=== PATIENT | female | born 1950 | race Caucasian/White ===

== ENCOUNTER 2018-08-26 14:33 | Day surgery (SDC) | payer OTHER ==
[~2018-08-26] VITALS: Ht 152.4 cm; Wt 70.3 kg
[2018-08-26] MEDS ORDERED: MOTRIN (16:03)
[2018-08-26] MEDS ORDERED: AMITRIPTYLINE (16:04)
[2018-08-26 16:05] VITALS: Ht 152.4 cm; Wt 70.3 kg
[2018-08-26 16:25] VITALS: BP 143/64; PULSE 62; RESP 20
--- NOTE | 2018-08-26 16:36 | PREAC ---
Date/Time of Note Date/Time of Note DATE: 08/26/18 TIME: 16:35 Anesthesia Eval and Record Evaluation Time Pre-Procedure Interview DATE: 08/26/18 TIME: 16:35 Age 68 Sex female NPO: 8 hrs Preoperative diagnosis screening Planned procedure colonoscopy Past Medical History Past Medical History: Includes Neuro: Other (insomnia) Musculoskeletal: Osteoarthritis Surgery & Anesthesia Issues No known issue Meds Anticoagulation: No Beta Georgina within 24 hr: No Reason Beta Georgina not given: Pt. not on B-Georgina Reported Medications [Amitriptyline] No Conflict Check 08/26/18 [Motrin] No Conflict Check 08/26/18 Meds reviewed: Yes Allergies Coded Allergies: No Known Allergy (Unverified , 08/26/18) Allergies Reviewed: Yes Labs/Studies Labs Reviewed: Reviewed by anesthesiologist test: N/A Studies: ECG (n/a), CXR (n/a) Pre-procedure Exam Last vitals Vital Signs Date Temp Pulse Resp B/P (MAP) Pulse Ox O2 O2 Flow FiO2 Time Delivery Rate 08/26/18 97.6 62 20 143/64 96 Room Air 16:25 (90) Airway: Adequate mouth opening Mallampati: Mallampati I Teeth: Normal Lung: Normal Heart: Normal ASA Physical Status ASA physical status: 2 Emergency: None Planned Anesthetic General/MAC: MAC Planned Pain Management Parenteral pain med Pre-operative Attestations Prior to commencing anesthesia and surgery, the patient was re-evaluated, there was verification of: *The patient's identity *The results of appropriate recent lab work and preoperative vital signs *The above evaluation not changing prior to induction *Anesthetic plan, risk benefits, alternative and complications discussed with patient/family; questions answered; patient/family understands, accepts and wishes to proceed. VARUN YU MD Aug 26, 2018 16:36
[2018-08-26] MEDS ORDERED: PROPOFOL 20 ML ONE (16:37)
[2018-08-26] MEDS ORDERED: FENTAnyl 50 MCG/ML VIAL ONE (16:37)
--- NOTE | 2018-08-26 17:17 | PAC ---
Date/Time of Note Date/Time of Note DATE: 08/26/18 TIME: 17:17 Post-Anesthesia Notes Post-Anesthesia Note Last documented vital signs Vital Signs Date Temp Pulse Resp B/P (MAP) Pulse Ox O2 O2 Flow FiO2 Time Delivery Rate 08/26/18 97.6 62 20 143/64 96 Room Air 16:25 (90) Activity: WNL Respiratory function: WNL Cardiovascular function: WNL Mental status: Baseline Pain reasonably controlled: Yes Hydration appropriate: Yes Nausea/Vomiting absent: No VARUN YU MD Aug 26, 2018 17:17
[2018-08-26 17:27] VITALS: BP 154/69; PULSE 54; RESP 23
== END 2018-08-26 17:17 | disposition home or self-care (01) ==
LOC: GIL 14:33
PROVIDERS: ATTEND Internal Medicine Gastroenterology
DX: Z12.11 Encounter for screening for malignant neoplasm of colon (principal); K64.8 Other hemorrhoids
CPT/HCPCS: 45378; J3010